=== PATIENT | male | born 1965 | race Caucasian/White ===

== ENCOUNTER 2016-11-05 17:56 | Emergency (ER) | payer MEDICAID ==
[2016-11-05] MEDS ORDERED: Haloperidol Lactate 5 mg/mL 1mL Vial IM STA (18:32)
[2016-11-05] MEDS ORDERED: Haloperidol Lactate 5 mg/mL 1mL Vial ONE (18:32)
[2016-11-05] MEDS ORDERED: Sodium Chloride 0.9% 1,000 ML IV ONE (19:22)
--- NOTE | 2016-11-05 19:35 | ED Physician Chart ---
History of Present Illness - General Chief Complaint: Abdominal Pain Stated Complaint: VOMITING Time Seen by Provider: 11/05/16 19:17 Source: RN/ (generalized abd pain, vomiting >20 times in pt with recurrent cyclic vomiting for years, well known to me. no new features this visit.) Exam Limitations: No Limitations - History of Present Illness Associated Symptoms: back pain, nausea/vomiting Allergies/Adverse Reactions: Allergies No Known Allergies Allergy (Verified 11/05/16 18:17) Home Medications: Ambulatory Orders Pantoprazole [Protonix] 40 mg PO DAILY #30 pkt 08/05/16 Sucralfate [Carafate] 1 gm PO TID #90 tablet 08/05/16 Past History - Past Medical History Medical History: Other (cyclic vomiting) - Social History Smoking Status: Current every day smoker Hx Alcohol Use: Yes (occassionally) Hx Drug Use: Yes (Marijuana) Family Medical History - Family Member Mother History Unknown: Yes Ethnicity: Review of Systems - Review of Systems Constitutional: Denies: Chills, Fever EENTM: Reports: No symptoms reported Respiratory: Reports: No Symptoms Reported Cardiac (ROS): Reports: No Symptoms Reported ABD/GI: Reports: Abdominal pain, Nausea, Vomiting : Denies: Dysuria Musculoskeletal: Reports: Back Pain Skin: Reports: No Symptoms Reported Neurological: Reports: No Symptoms Reported Endocrine: Reports: Excessive Sweating Hematologic/Lymphatic: Reports: No Symptoms Reported All Other Systems: Reviewed and Negative Physical Exam - Physical Exam General Appearance: moderate distress Eyes, Ears, Nose, Throat Exam: PERRL/EOMI (non icteric) Respiratory: chest non-tender, no respiratory distress, no accessory muscle use Cardiovascular/Chest: regular rate, rhythm, no murmur Gastrointestinal/Abdominal: Tenderness (abd is quiet, midepigastric tenderness, no rebound, no guard) Progress - Results/Orders Results/Orders: pt well known to me from other hospital where he was treated over 1oo times for cyclic vomiting secondary to chronic marijuana usage. there are no new or unusual features to this presentation, specifically no mcburneys point tenderness, guarding or rebound. he has had some diarrhea which is a bit different but no blood or mucous. no fever, no tachycardia. Reassessment (Disposition) - Reassessment Reassessment:: pt has been resting quietly after additional antiemetic. he has not vomited for hours but continues to complain 'im not better' although this is NOT clinically apparent. he is up to bathroom, urinating frequently. handing pt to Dr arredondo for final dispo.
--- NOTE | 2016-11-05 20:24 | Admit Criteria Form ---
Admit Criteria Forms - Admit Criteria Diagnosis: VOMITING Clinical Indications for Admission to Inpatient Care ( Place 'X' for any and all applicable criteria): Admission is indicated for ANY ONE of the following(1)(2)(3): [X]I. Inpatient admission required rather than observation care because of ANY ONE of the following: [ ]i) Hemodynamic instability that is severe or persistent [X]ii) Vomiting that is severe or persistent [ ]iii) Severe electrolyte abnormalities requiring inpatient care [ ]iv) Severe pain requiring acute inpatient management [ ]v) High fever or infection requiring inpatient admission as indicated by ANY ONE of the following(7)(8): [ ]1) Appropriate outpatient or observation care antimicrobial treatment unavailable, not effective, or not feasible [ ]2) Documented bacteremia [ ]3) Temp >104.9 degrees F (40.5 degrees C) (oral) [ ]4) Temp >103.1 degrees F (39.5 C) (oral) or <96.8 degrees F (36 C) (rectal) that does not respond to all emergency treatment measures [ ]vi) Acute renal failure [ ]vii) IV fluid to replace significant ongoing losses (greater than 3 L/m2 per day) [ ]viii) Parenteral nutrition regimen that must be implemented on inpatient basis [ ]ix) Other condition, treatment or monitoring requiring inpatient admission [ ]II. Complete or partial gastrointestinal obstruction [ ]III. Other cause of vomiting requiring hospitalization (eg, poisoning, increased intracranial pressure) [ ]IV. Vomiting due to significant metabolic derangement (eg, severe hypercalcemia, diabetic ketoacidosis) Extended stay beyond goal length of stay may be needed for(1)(4): [ ]a) Severe vomiting [ ]b) Persistent vomiting, vital sign changes, severe electrolyte imbalance , or diagnosed cause of vomiting that requires continued hospitalization (eg, gastrointestinal obstruction , increased intracranial pressure) [ ]c) Surgery to treat identified causes of vomiting (eg, bowel obstruction , intracranial process) [ ]d) Comorbid illness that requires inpatient care (eg, acute heart failure , renal failure) [ ]e) Need for inpatient endoscopy The original [facility] [employer] content created by Ryland Breaux has been revised. The portions of the content which have been revised are identified through the use of italic text or in bold, and Ryland Breaux has neither reviewed nor approved the modified material. All other unmodified content is copyright [facility]. Please see references footnoted in the original [facility] edition 2016 Admit Criteria Met?: Yes
[2016-11-05] MEDS ORDERED: Metoclopramide 5 mg/mL 2mL Vial IVP STA (20:49)
[2016-11-05] MEDS ORDERED: Metoclopramide 5 mg/mL 2mL Vial ONE (20:53)
== END 2016-11-05 21:50 | disposition home or self-care (01) ==
LOC: ER 17:56
DX: G43.A0 Cyclical vomiting, in migraine, not intractable (principal)
CPT/HCPCS: 99284; 96372; 96374; 96375; J1885; J2765; J1630; J7030; Z7502

== ENCOUNTER 2016-11-09 12:03 | Emergency (ER) | payer MEDICAID ==
--- NOTE | 2016-11-09 12:29 | ED Physician Chart ---
Chief Complaint/HPI - Patient Information Date Seen:: 11/09/16 Time Seen:: 12:24 Chief Complaint:: vomiting History of Present Illness:: pt was seen here sat for same sx. says since dc has been vomiting 10+x/day. says he has hx of "cyclical vomiting synd" and has had this 100s of times in past...last flare up was at [facility]. no problems since until sat. no fever. no constipation. no diarrhea. pos gen diffuse abd pain. had gb sx in past. is on sucralfate and nausea med...no relief... no dysuria. denies any pain meds x sev months. smokes Mj occasionally. denies other street drugs. Allergies:: Allergies Allergy/AdvReac Type Severity Reaction Status Date / Time No Known Allergies Allergy Verified 11/09/16 12:14 Vitals:: Vital Signs - 8 hr 11/09/16 12:03 Temp 98.1 F HR 117 RR 18 BP 153/105 O2 Sat % 96 Historian:: Patient Review of Systems - Review of Systems General/Constitutional: No fever, No chills, No weight loss, No weakness, No diaphoresis, No edema, No loss of appetite Skin: No skin lesions, No rash, No bruising Head: No headache, No light-headedness Eyes: No loss of vision, No pain, No diplopia ENT: No earache, No nasal drainage, No sore throat, No tinnitus Neck: No neck pain, No swelling, No thyromegaly, No stiffness, No mass noted Cardio Vascular: No chest pain, No palpitations, No PND, No orthopnea, No edema Pulmonary: No SOB, No cough, No sputum, No wheezing GI: Nausea, Vomiting, No diarrhea, Pain, No melena, No hematochezia, No constipation, No hematemesis G/U: No dysuria, No frequency, No hematuria Musculoskeletal: No bone or joint pain, No back pain, No muscle pain Endocrine: No polyuria, No polydipsia Psychiatric: No prior psych history, No depression, No anxiety, No suicidal ideation Hematopoietic: No bruising, No lymphadenopathy Allergic/Immuno: No urticaria, No angioedema Neurological: No syncope, No focal symptoms, No weakness, No paresthesia, No headache, No seizure, No dizziness, No confusion, No vertigo Past Medical History - Past Medical History Past Medical History: Other (cyclical vomiting synd) Social History: Smoker, No Alcohol, Illicit Drug Use (mj occasionally) Medication: Reviewed Family Medical History - Family Member Mother History Unknown: Yes Ethnicity: Other Medical History: denies family medical history Physical Exam - Physical Examination General/Constitutional: Awake, Well-developed, well-nourished, Alert, No distress, GCS 15, Non-toxic appearing, Ambulatory Other Gen/Cons comments:: alert, wn/wh. avoidant?...prefers to lie on stomach and face away from me during exam. Head: Atraumatic Eyes: Lids, conjuctiva normal, PERRL, EOMI Skin: Nl inspection, No rash, No skin lesions, No ecchymosis, Well hydrated, No lymphadenopathy ENMT: External ears, nose nl, Nasal exam nl, Lips, teeth, gums nl Neck: Nontender, Full ROM w/o pain, No JVD, No nuchal rigidity, No bruit, No mass, No stridor Respiratory: Nl effort/Exclusion, Clear to Auscultation, No Wheeze/Rhonchi/Rales Cardio Vascular: RRR, No murmur, gallop, rubs, NL S1 S2 GI: No organomegaly, No hernia, Normal BS's, Nondistended, No mass/bruits, No McBurney tenderness Other GI comments:: generalized tndrness...poorly localized. pos nabs. no rebound. no masses.no cva tndrness. : No CVA tenderness Extremities: No tenderness or effusion, Full ROM, normal strength in all extremities, No edema, Normal digits & nails Neuro/Psych: Alert/oriented, DTR's symmetric, Normal sensory exam, Normal motor strength, Judgement/insight normal, Mood normal, Normal gait, No focal deficits Misc: normal gait, Normal back, No paraspinal tenderness Labs/Radiology/EKG Results - Lab Results Results: Laboratory Tests 11/09/16 11/09/16 11/09/16 12:39 12:39 12:52 WBC 14.7 H D RBC 5.82 H Hgb 17.1 D Hct 51.2 H D MCV 88.0 MCH 29.4 MCHC Differential 33.4 RDW 14.2 Plt Count 271 D MPV 8.4 Neutrophils % 82.8 H Lymphocytes % 10.9 L Monocytes % 6.1 Eosinophils % 0.2 Basophils % 0.0 Sodium 128 L Potassium 2.8 L* Chloride 92 L Carbon Dioxide 25.7 Anion Gap 13.1 BUN 29 H Creatinine 1.2 Est GFR ( Amer) > 60.0 Est GFR (Non-Af Amer) > 60.0 BUN/Creatinine Ratio 24.2 Glucose 125 H Calcium 9.7 Total Bilirubin 2.0 H AST 20 ALT 25 Alkaline Phosphatase 81 Total Protein 8.0 Albumin 4.7 Globulin 3.3 Albumin/Globulin Ratio 1.4 Lipase 21 Urine Source CLEAN C Urine Color DIMITRI Urine Clarity SL. CLOUDY Urine pH 6.0 Ur Specific Holt Urine Protein 30 H Urine Glucose (UA) NEGATIVE Urine Ketones 40 H Urine Blood TRACE Urine Nitrate NEGATIVE Urine Bilirubin SMALL H Urine Urobilinogen 0.2 Ur Leukocyte Esterase NEGATIVE Urine RBC 0-1 Urine WBC 0-2 Ur Epithelial Cells FEW Urine Bacteria OCCASIONAL Coarse Granular Casts 0-2 H Urine Mucus FEW Urine Opiates Screen Ur Barbiturates Screen Ur Phencyclidine Scrn Amphetamines Screen U Methamphetamines Scrn U Benzodiazepines Scrn U Cocaine Metab Screen U Cannabinoids Screen 11/09/16 12:52 WBC RBC Hgb Hct MCV MCH MCHC Differential RDW Plt Count MPV Neutrophils % Lymphocytes % Monocytes % Eosinophils % Basophils % Sodium Potassium Chloride Carbon Dioxide Anion Gap BUN Creatinine Est GFR ( Amer) Est GFR (Non-Af Amer) BUN/Creatinine Ratio Glucose Calcium Total Bilirubin AST ALT Alkaline Phosphatase Total Protein Albumin Globulin Albumin/Globulin Ratio Lipase Urine Source Urine Color Urine Clarity Urine pH Ur Specific Holt Urine Protein Urine Glucose (UA) Urine Ketones Urine Blood Urine Nitrate Urine Bilirubin Urine Urobilinogen Ur Leukocyte Esterase Urine RBC Urine WBC Ur Epithelial Cells Urine Bacteria Coarse Granular Casts Urine Mucus Urine Opiates Screen NEGATIVE Ur Barbiturates Screen NEGATIVE Ur Phencyclidine Scrn NEGATIVE Amphetamines Screen NEGATIVE U Methamphetamines Scrn NEGATIVE U Benzodiazepines Scrn NEGATIVE U Cocaine Metab Screen NEGATIVE U Cannabinoids Screen POSITIVE H - Radiology Results Results: CT ABD/P= FINDINGS: Mild atelectatic changes of the lung bases are noted. Assessment of the solid organs is limited due to lack of IV contrast. No evidence of focal hepatic lesions. The patient is status post cholecystectomy. No focal splenic or pancreatic lesions. No focal adrenal lesions. Nonspecific bilateral perinephric inflammatory changes are noted. No hydronephrosis or evidence of renal stones. Minimal diverticulosis is noted without diverticulitis. No evidence of bowel obstruction. No acute appendicitis. No free air or free fluid. Mild atherosclerosis is noted. Degenerative changes of the spine and pelvis are noted. IMPRESSION: Minimal diverticulosis without evidence of diverticulitis No evidence of bowel obstruction No evidence of free fluid Mild nonspecific bilateral perinephric inflammatory changes. No evidence of renal stones or hydronephrosis. Evidence of prior cholecystectomy. ED Septic Shock - . Is Septic Shock (SBP<90, OR Lactate>4 mmol\\L) present?: No - <6hrs of presentation: Vital Signs: Vital Signs - 8 hr 11/09/16 12:03 Temp 98.1 F HR 117 RR 18 BP 153/105 O2 Sat % 96 Reassessment (Disposition) - Reassessment Reassessment:: pt reexam at 2;20p. pt reports no nausea and no pain at present feels ok. is getting k and fluids iv plan is dc dw pt that his studies are ok x low k and 'inflamation of renal system of uncertain etiology (does not appear uti by ua)...advise pt close fu w pmd. pt says he has been notified about renal inf change in past. Reassessment Condition:: Improved - Diagnosis Diagnosis:: 1 cyclical vomiting syndrome...improved w meds in ED 2 chronic renal system inflamation of uncertain etiology - Aftercare/Follow up Instructions Aftercare/Follow-Up Instructions:: Counseled pt regarding lab results/diagnosis & need follow up - Patient Disposition Discharge/Transfer:: Home Condition at Disposition:: Improved
[2016-11-09] MEDS ORDERED: Sodium Chloride 0.9% 1,000 ML IV ONE (12:31)
[2016-11-09] MEDS ORDERED: HYDROmorphone 1 mg/mL 1mL Syr IVP STA (12:36)
[2016-11-09 12:47] LABS: % EOSINOPHILS 0.2 % (0.0-5.0); % LYMPHOCYTES 10.9 % (20.0-50.0); % MONOCYTES 6.1 % (2.0-10.0); % NEUTROPHILS 82.8 % (40.0-80.0); MEAN CORPUSCULAR HEMOGLOBIN 29.4 pg (26.0-30.0); MEAN CORPUSCULAR HGB CONC 33.4 pg (28.0-36.0); MEAN PLATELET VOLUME 8.4 fl; NEUTROPHILE ABSOLUTE 12.2 Th/cmm (1.8-8.0); RED BLOOD COUNT 5.82 Mil/cmm (4.30-5.70); RED CELL DISTRIBUTION WIDTH 14.2 % (11.5-20.0)
[2016-11-09 12:48] LABS: HEMATOCRIT 51.2 % (39.0-49.0); HEMOGLOBIN 17.1 gm/dL (13.2-17.3); PLATELET COUNT 271 Th/cmm (150-400); WHITE BLOOD COUNT 14.7 Th/cmm (4.8-10.8)
[2016-11-09 12:57] LABS: ALB/GLOB RATIO 1.4 (1.0-1.8); ALKALINE PHOSPHATASE 81 U/L (34-104); ANION GAP 13.1 (7.0-16.0); BUN - UREA NITROGEN 29 mg/dL (7-25); BUN/CREATININE RATIO 24.2; CALCIUM SERUM 9.7 mg/dL (8.6-10.3); CARBON DIOXIDE 25.7 mEq/L (21.0-31.0); CHLORIDE 92 mEq/L (98-107); CREATININE - SERUM 1.2 mg/dL (0.7-1.3); GLUCOSE 125 mg/dL (70-105); LIPASE 21 U/L (11-82); SGOT 20 U/L (13-39); SGPT/ALT 25 U/L (7-52); SODIUM SERUM 128 mEq/L (136-145)
[2016-11-09 13:00] LABS: URINE BILIRUBIN SMALL (NEGATIVE); URINE COLOR AMBER; URINE GLUCOSE (UA) NEGATIVE (NEGATIVE); URINE KETONE 40 mg/dL (NEGATIVE)
[2016-11-09 13:01] LABS: URINE BACTERIA OCCASIONAL /hpf (NONE SEEN); URINE BLOOD TRACE (NEGATIVE); URINE COARSE GRANULAR CAST 0-2 /lpf (NONE SEEN); URINE EPITHELIAL CELLS FEW /lpf (FEW); URINE PROTEIN 30 mg/dL (NEGATIVE); URINE RBC 0-1 /hpf (0-5); URINE UROBILINOGEN 0.2 E.U./dL (0.2 - 1.0); URINE WBC 0-2 /hpf (0-5)
[2016-11-09 13:04] LABS: POTASSIUM SERUM 2.8 mEq/L (3.5-5.1)
[2016-11-09 13:08] LABS: AMPHETAMINE URINE NEGATIVE (NEGATIVE); BARBITURATES URINE NEGATIVE (NEGATIVE)
[2016-11-09] MEDS ORDERED: HYDROmorphone 1 mg/mL 1mL Syr ONE (13:13)
[2016-11-09] MEDS ORDERED: KCL 20mEq/100mL Premix 20 MEQ/100 ML PIGGYBACK IV ONE ×2 (13:14→15:24)
--- NOTE | 2016-11-09 13:14 | Diagnostic Imaging Report ---
CT abdomen and pelvis without intravenous contrast Indication: Pain. Diarrhea. Vomiting Comparison: MRCP on 08/05/2016 abdominal ultrasound on 08/03/2016 Technique: Axial images were obtained from the lung bases to the bilateral proximal femurs without IV contrast. Coronal reconstructions were made. total DLP: 531, CTDI11.2 FINDINGS: Mild atelectatic changes of the lung bases are noted. Assessment of the solid organs is limited due to lack of IV contrast. No evidence of focal hepatic lesions. The patient is status post cholecystectomy. No focal splenic or pancreatic lesions. No focal adrenal lesions. Nonspecific bilateral perinephric inflammatory changes are noted. No hydronephrosis or evidence of renal stones. Minimal diverticulosis is noted without diverticulitis. No evidence of bowel obstruction. No acute appendicitis. No free air or free fluid. Mild atherosclerosis is noted. Degenerative changes of the spine and pelvis are noted. IMPRESSION: Minimal diverticulosis without evidence of diverticulitis No evidence of bowel obstruction No evidence of free fluid Mild nonspecific bilateral perinephric inflammatory changes. No evidence of renal stones or hydronephrosis. Evidence of prior cholecystectomy.
[2016-11-09] MEDS: KCL 20mEq/100mL Premix 20 MEQ/100 ML PIGGYBACK IV SCH ×2 (13:18→15:27)
== END 2016-11-09 16:54 | disposition home or self-care (01) ==
LOC: ER 12:03
DX: G43.A0 Cyclical vomiting, in migraine, not intractable (principal); N03.9 Chronic nephritic syndrome with unspecified morphologic changes; F17.200 Nicotine dependence, unspecified, uncomplicated
CPT/HCPCS: 99285; 96374; 96375; 74176; 36415; 80300; 85025; 81001; 83690; 80053; J3480 ×2; J2405; J1170; J1200; J7030